=== PATIENT | female | born 1995 | race Hispanic/Latino ===

== ENCOUNTER 2023-12-14 11:38 | Emergency (ER) | payer OTHER ==
[~2023-12-14] VITALS: Ht 157.5 cm; Wt 104.3 kg
[2023-12-14] MEDS ORDERED: IBUP-2077 PO (12:28)
[2023-12-14] MEDS: HYDROCODONE/ACETAMINOPHEN 5/325 MG TAB PO ONE (12:59)
[2023-12-14] MEDS: IBUPROFEN 800 MG TAB PO ONE (13:08)
[2023-12-14 13:34] VITALS: BP 145/91; PULSE 92; RESP 18; O2SAT 98
== END 2023-12-14 13:43 | disposition home or self-care (01) ==
LOC: EDH 11:38
DX: S93.491A Sprain of other ligament of right ankle, initial encounter (principal); Z90.89 Acquired absence of other organs; Z98.890 Other specified postprocedural states; W52.XXXA Crushed, pushed or stepped on by crowd or human stampede, initial encounter; Y93.89 Activity, other specified; Y92.89 Other specified places as the place of occurrence of the external cause; Y99.8 Other external cause status
CPT/HCPCS: 29515; 73600